=== PATIENT | female | born 1965 | race Caucasian/White ===

== ENCOUNTER 2023-09-29 05:11 | Emergency (ER) | payer OTHER ==
[2023-09-29 05:22] VITALS: BP 116/65; PULSE 74; RESP 20; TEMP 97.9; BMI 29.2
[2023-09-29 06:30] LABS: EPI CELLS 36 /uL (0-25.1); HYALINE CASTS 2 /uL (0-3.1); URINE APPEARANCE CLOUDY; URINE BACTERIA 2913 /uL (0-1359); URINE BILIRUBIN NEGATIVE (NEGATIVE); URINE COLOR YELLOW; URINE GLUCOSE (UA) NEGATIVE (NEGATIVE); URINE KETONE NEGATIVE (NEGATIVE); URINE LEUK ESTERASE 1+ (NEGATIVE); URINE NITRITE NEGATIVE (NEGATIVE); URINE PROTEIN NEGATIVE (NEGATIVE); URINE UROBILINOGEN 0.2 mg/dL (0.2-1.0); URINE WBC 96 /uL (0-25.8)
[2023-09-29] MEDS ORDERED: SODIUM CHLORIDE 1,000 ML IV STA (08:02)
[2023-09-29] MEDS ORDERED: ACETAMINOPHEN 1000 MG/100 ML BAG IVPB ONE (08:02)
[2023-09-29 08:26] LABS: URINE RBC 114 /uL (0-23.9)
[2023-09-29] MEDS ORDERED: ACETAMINOPHEN INJECTION 100 ML IVPB ONE (09:18)
[2023-09-29 10:13] LABS: POTASSIUM 4.5 mmol/L (3.5-5.1)
[2023-09-29 10:15] LABS: BLOOD UREA NITROGEN 17.6 mg/dL (7-18); CALCIUM 9.3 mg/dL (8.5-10.1)
[2023-09-29 10:16] LABS: ALBUMIN 3.8 g/dl (3.4-5.0)
[2023-09-29 10:19] LABS: CREATININE 0.7 mg/dL (0.55-1.3)
[2023-09-29 10:20] LABS: BILIRUBIN,TOTAL 0.9 mg/dL (0.2-1); TOT PROT 7.4 g/dl (6.4-8.2)
[2023-09-29 10:23] LABS: HEMATOCRIT 40.4 % (32.4-45.2); HEMOGLOBIN 13.7 GM/dL (10.7-15.3); MCH 28.5 pg (25.7-33.7); MCHC 33.9 g/dl (32.0-36.0); MEAN PLT VOLUME 8.5 fl (7.5-11.1); PLATELET COUNT 283 10^3/uL (134-434); RDW 14.9 % (11.6-15.6)
[2023-09-29 10:27] LABS: WHITE BLOOD COUNT 6.6 K/mm3 (4.0-10.0)
[2023-09-29 12:27] LABS: ANISOCYTOSIS 0; HELMET CELLS 0; HOWELL-JOLLY BODIES 0; MACROCYTOSIS 0; OVALOCYTE 0; ROULEAU 0; SICKELED CELLS 0; TARGET CELLS 0; TEAR DROP CELLS 0; TOXIC GRANULATION 0
== END 2023-09-29 12:21 | disposition left against medical advice (07) ==
LOC: JER 05:11
PROC: 3E033NZ Introduction of Analgesics, Hypnotics, Sedatives into Peripheral Vein, Percutaneous Approach (ICD-10-PCS; principal; 2023-09-29)
PROC: 3E0337Z Introduction of Electrolytic and Water Balance Substance into Peripheral Vein, Percutaneous Approach (ICD-10-PCS; 2023-09-29)
DX: M54.50 Low back pain, unspecified (principal); R35.0 Frequency of micturition; R30.9 Painful micturition, unspecified; N39.0 Urinary tract infection, site not specified; R10.9 Unspecified abdominal pain
CPT/HCPCS: 36415; 80053; 81003; 83690; 85025; 87086; 93005; 93010; 99284-25

== ENCOUNTER 2025-05-15 16:48 | Emergency (ER) | payer OTHER ==
[2025-05-15 16:56] VITALS: BP 125/76; PULSE 95; RESP 20; TEMP 98; BMI 25.8
[2025-05-15] MEDS ORDERED: ACETAMINOPHEN INJECTION 100 ML ONE (19:03)
[2025-05-15] MEDS ORDERED: ONDANSETRON 4 MG/2 ML VIAL ONE (19:03)
[2025-05-15] MEDS: ONDANSETRON 4 MG/2 ML VIAL IVPUSH ONE (19:32)
[2025-05-15] MEDS: ACETAMINOPHEN 1000 MG/100 ML BAG IVPB ONE (19:32)
[2025-05-15] MEDS: LACTATED RINGERS SOLUTION 1000 ML INFUS.BAG IV ONE (19:33)
[2025-05-15 19:40] LABS: ABSOLUTE IMMATURE GRANULOCYTES 0.01 x10^3/uL (0.0-0.031); BASOPHILS # 0.03 x10^3/uL (0.01-0.08); EOSINOPHIL % 1.9 % (0.7-5.8); EOSINOPHILS # 0.11 x10^3/uL (0.04-0.36); MCHC 32.6 g/dl (32.2-35.5); MEAN CELL VOLUME 86.7 fl (79.4-94.8); MEAN PLT VOLUME 9.6 fl (9.4-12.3); MONOCYTE # 0.41 x10^3/uL (0.24-0.86); MONOCYTE % 6.9 % (4.7-12.5); RDW 13.2 % (12.3-16.6)
[2025-05-15 20:08] LABS: CO2 27.0 mmol/L (21-32); GLUCOSE,RANDOM 103.0 mg/dL (74-106)
[2025-05-15 20:11] LABS: CREATININE 0.8 mg/dL (0.55-1.3); SGOT/AST 17.0 U/L (15-37); SGPT/ALT 21.0 U/L (13-61)
[2025-05-15 20:12] LABS: TOT PROT 7.9 g/dl (6.4-8.2)
[2025-05-15 20:14] LABS: ALK PHOS 78.0 U/L (45-117)
[2025-05-15 21:49] LABS: EPI CELLS 8 /uL (0-25.1); HYALINE CASTS 0 /uL (0-3.1); URINE APPEARANCE CLEAR; URINE BACTERIA 216 /uL (0-1359); URINE BILIRUBIN NEGATIVE (NEGATIVE); URINE COLOR YELLOW; URINE GLUCOSE (UA) NEGATIVE (NEGATIVE); URINE KETONE 1+ (NEGATIVE); URINE LEUK ESTERASE TRACE (NEGATIVE); URINE NITRITE NEGATIVE (NEGATIVE); URINE PROTEIN NEGATIVE (NEGATIVE); URINE RBC 31 /uL (0-23.9); URINE UROBILINOGEN 0.2 mg/dL (0.2-1.0); URINE WBC 17 /uL (0-25.8)
[2025-05-16 00:37] LABS: HCV DIAGNOSTIC IN-HOUSE W/RFLX NON-REACTIVE (NONREACTIVE)
[2025-05-16 00:42] LABS: HIV INTERPRETATION NEGATIVE (NEGATIVE)
== END 2025-05-15 21:56 | disposition home or self-care (01) ==
LOC: JER 16:48
PROC: 3E033GC Introduction of Other Therapeutic Substance into Peripheral Vein, Percutaneous Approach (ICD-10-PCS; principal; 2025-05-15)
PROC: 3E033GC Introduction of Other Therapeutic Substance into Peripheral Vein, Percutaneous Approach (ICD-10-PCS; 2025-05-15)
DX: R10.11 Right upper quadrant pain (principal); R11.0 Nausea; R30.0 Dysuria; R10.31 Right lower quadrant pain
CPT/HCPCS: 36415; 76775-TC; 80053; 81003; 83735; 84443; 85025; 86803; 87086; 87389; 96374; 96375; 99285-25